=== PATIENT | female | born 1995 | race American Indian/Alaskan Native ===

== ENCOUNTER 2020-01-02 09:55 | Emergency (ER) | payer OTHER ==
[2020-01-02 10:02] VITALS: BP 144/85
--- NOTE | 2020-01-02 10:43 | Emergency Department Report ---
ED General Adult HPI - General Stated complaint: SORE THROAT/NAUSEA Time Seen by Provider: 01/02/20 10:38 Source: patient - History of Present Illness Initial comments: 24-year-old -Greek female presents to the emergency room complaining of a 2-day history of sore throat that feels like it is closing up. Patient states she has been taking Advil liquid which helps some but not much. Patient also reports she has been feeling nausea and dizziness. Patient states that her last menstrual period was 12/12/2019 she took a Plan B on 12/23/2019 after having unprotected intercourse. Patient denies any past medical history takes no medications on a daily basis. No known drug allergies. Onset/Timin -: days(s) (2 days for sore throat), week(s) (Nausea with mild dizziness) Severity scale (0 -10): 8 Quality: stabbing, sharp Consistency: constant Associated Symptoms: nausea/vomiting (No vomiting). denies: cough, diaphoresis, fever/chills, rash, shortness of breath Treatments Prior to Arrival: none - Related Data Previous Rx's Medication Instructions Recorded Last Taken Type Amoxicillin [Amoxicillin TAB] 875 mg PO BID #14 tablet 01/02/20 Unknown Rx Allergies Allergy/AdvReac Type Severity Reaction Status Date / Time No Known Allergies Allergy Unverified 01/02/20 10:03 ED Review of Systems ROS: Stated complaint: SORE THROAT/NAUSEA Other details as noted in HPI Comment: All other systems reviewed and negative ED Past Medical Hx - Social History Smoking Status: Current Every Day Smoker Substance Use Type: Alcohol, Marijuana - Medications Home Medications: Home Medications Medication Instructions Recorded Confirmed Last Taken Type Amoxicillin [Amoxicillin TAB] 875 mg PO BID #14 tablet 01/02/20 Unknown Rx ED Physical Exam - General General appearance: alert, in no apparent distress - Head Head exam: Present: atraumatic, normocephalic - Eye Eye exam: Present: normal appearance - ENT ENT exam: Present: mucous membranes moist - Expanded ENT Exam Expanded Throat exam: Positive: tonsillar erythema, tonsillomegaly, tonsillar exudate - Neck Neck exam: Present: tenderness, lymphadenopathy - Respiratory Respiratory exam: Present: normal lung sounds bilaterally. Absent: respiratory distress - Cardiovascular Cardiovascular Exam: Present: regular rate, normal rhythm. Absent: systolic murmur, diastolic murmur, rubs, gallop - GI/Abdominal GI/Abdominal exam: Present: soft. Absent: distended, tenderness - Extremities Exam Extremities exam: Present: normal inspection, full ROM - Back Exam Back exam: Present: normal inspection - Neurological Exam Neurological exam: Present: alert, oriented X3, normal gait - Psychiatric Psychiatric exam: Present: normal affect, normal mood - Skin Skin exam: Present: warm, dry, intact, normal color. Absent: rash ED Course Vital Signs 01/02/20 10:00 Temperature 98.1 F Pulse Rate 78 Respiratory 16 Rate Blood Pressure 144/85 O2 Sat by Pulse 98 Oximetry ED Medical Decision Making - Lab Data Result diagrams: 01/02/20 10:48 Laboratory Last Values WBC 16.1 K/mm3 (4.5-11.0) H 01/02/20 10:48 RBC 4.72 M/mm3 (3.65-5.03) 01/02/20 10:48 Hgb 13.7 gm/dl (10.1-14.3) 01/02/20 10:48 Hct 41.9 % (30.3-42.9) 01/02/20 10:48 MCV 89 fl (79-97) 01/02/20 10:48 MCH 29 pg (28-32) 01/02/20 10:48 MCHC 33 % (30-34) 01/02/20 10:48 RDW 15.4 % (13.2-15.2) H 01/02/20 10:48 Plt Count 315 K/mm3 (140-440) 01/02/20 10:48 Lymph % (Auto) 9.2 % (13.4-35.0) L 01/02/20 10:48 [place] % (Auto) 8.6 % (0.0-7.3) H 01/02/20 10:48 Eos % (Auto) 1.1 % (0.0-4.3) 01/02/20 10:48 Baso % (Auto) 0.5 % (0.0-1.8) 01/02/20 10:48 Lymph # 1.5 K/mm3 (1.2-5.4) 01/02/20 10:48 [place] # 1.4 K/mm3 (0.0-0.8) H 01/02/20 10:48 Eos # 0.2 K/mm3 (0.0-0.4) 01/02/20 10:48 Baso # 0.1 K/mm3 (0.0-0.1) 01/02/20 10:48 Seg Neutrophils % 80.6 % (40.0-70.0) H 01/02/20 10:48 Seg Neutrophils # 12.9 K/mm3 (1.8-7.7) H 01/02/20 10:48 HCG, Quant < 2 mIU/mL (0-4) 01/02/20 10:48 Urine Color Yellow (Yellow) 01/02/20 10:44 Urine Turbidity Clear (Clear) 01/02/20 10:44 Urine pH 5.0 (5.0-7.0) 01/02/20 10:44 Ur Specific [place] 1.020 (1.003-1.030) 01/02/20 10:44 Urine Protein <15 mg/dl mg/dL (Negative) 01/02/20 10:44 Urine Glucose (UA) Neg mg/dL (Negative) 01/02/20 10:44 Urine Ketones Neg mg/dL (Negative) 01/02/20 10:44 Urine Blood Lg (Negative) 01/02/20 10:44 Urine Nitrite Neg (Negative) 01/02/20 10:44 Urine Bilirubin Neg (Negative) 01/02/20 10:44 Urine Urobilinogen < 2.0 mg/dL (<2.0) 01/02/20 10:44 Ur Leukocyte Esterase Neg (Negative) 01/02/20 10:44 Urine WBC (Auto) 6.0 /HPF (0.0-6.0) 01/02/20 10:44 Urine RBC (Auto) 33.0 /HPF (0.0-6.0) 01/02/20 10:44 U Epithel Cells (Auto) 4.0 /HPF (0-13.0) 01/02/20 10:44 Urine Mucus Few /HPF 01/02/20 10:44 - Medical Decision Making 24-year-old -Greek female presents to the emergency room complaining of a 2-day history of sore throat that feels like it is closing up. Patient states she has been taking Advil liquid which helps some but not much. Patient also reports she has been feeling nausea and dizziness. Patient states that her last menstrual period was 12/12/2019 she took a Plan B on 12/23/2019 after having unprotected intercourse. Patient denies any past medical history takes no medications on a daily basis. No known drug allergies. test was negative, lab work shows no anemia. We will treat you for tonsillitis with amoxicillin continue with [id number] ibuprofen or Tylenol. Follow-up with your primary care provider if your symptoms persist or gets worse Critical care attestation.: If time is entered above; I have spent that time in minutes in the direct care of this critically ill patient, excluding procedure time. ED Disposition Clinical Impression: Tonsillitis with exudate, Negative test Disposition: TO HOME OR SELFCARE Is pt being admited?: No Does the pt Need Aspirin: No Condition: Stable Instructions: Tonsillitis (ED) Additional Instructions: test was negative, lab work shows no anemia. We will treat you for tonsillitis with amoxicillin continue with [id number] ibuprofen or Tylenol. Follow-up with your primary care provider if your symptoms persist or gets worse Prescriptions: Amoxicillin [Amoxicillin TAB] 875 mg PO BID #14 tablet
[2020-01-02 11:01] LABS: Bilirubin,Urine NEG (Negative); Blood,Urine LG (Negative); Color,Urine Yellow (Yellow); Mucus,Urine FEW /HPF; Protein,Urine <15 mg/dL mg/dL (Negative); Urobilinogen,Urine < 2.0 mg/dL (<2.0)
[2020-01-02 11:03] LABS: Basophils # (Auto) 0.1 K/mm3 (0.0-0.1); Basophils % (Auto) 0.5 % (0.0-1.8); Eosinophils # (Auto) 0.2 K/mm3 (0.0-0.4); Eosinophils % (Auto) 1.1 % (0.0-4.3); Hematocrit 41.9 % (30.3-42.9); Hemoglobin 13.7 gm/dl (10.1-14.3); Lymphocytes # (Auto) 1.5 K/mm3 (1.2-5.4); Lymphocytes % (Auto) 9.2 % (13.4-35.0); Mean Corpuscular HGB Conc 33 % (30-34); Mean Corpuscular Volume 89 fl (79-97); Monocytes # (Auto) 1.4 K/mm3 (0.0-0.8); Monocytes % (Auto) 8.6 % (0.0-7.3); Platelet Count 315 K/mm3 (140-440); Red Blood Count 4.72 M/mm3 (3.65-5.03); Red Cell Distribution Width 15.4 % (13.2-15.2)
[2020-01-02] MEDS ORDERED: IBUPROFEN 800 MG TAB PO ONE (12:02)
== END 2020-01-02 12:10 | disposition home or self-care (01) ==
LOC: ED 09:55
DX: J03.90 Acute tonsillitis, unspecified (principal); F17.200 Nicotine dependence, unspecified, uncomplicated; F12.10 Cannabis abuse, uncomplicated; Z32.02 Encounter for pregnancy test, result negative
CPT/HCPCS: 36415; 81001; 84702; 85025; 99283